=== PATIENT | male | born 1945 | race Caucasian/White ===

== ENCOUNTER → 2022-03-09 | Outpatient (CLI) | payer MEDICARE ==
[~2022-03-09] MED LIST: COZAAR50 MG; HYDROCHLOROTHIA25 MG PO; LIPITOR20 MG PO; LOSARTAN PO
== END ==
LOC: MRI 10:53
PROVIDERS: ATTEND Family Medicine
DX: M51.36 Other intervertebral disc degeneration, lumbar region (principal); M54.31 Sciatica, right side
CPT/HCPCS: 72148